=== PATIENT | male | born 1960 | race Caucasian/White ===

== ENCOUNTER 2018-10-15 11:48 | Emergency (ER) | payer BC ==
[~2018-10-15] VITALS: Ht 175.3 cm; Wt 111.2 kg
[2018-10-15 12:03] VITALS: BP 150/91
--- NOTE | 2018-10-15 12:12 | NUR ---
Patient ambulated to bed 7 with family. RN evaluating patient at bedside.
--- NOTE | 2018-10-15 12:25 | NUR ---
C/O THROAT DISCOMFORT X2 WEEKS. PT STATES HE FEELS LIKE THERE IS SOMETHING STUCK IN HIS THROAT. HE STATES THIS MAKES HIM FEEL SOB AND LIKE IT IS HARDER TO BREATHE. O2 SAT ON RA 98%, NO LABORED BREATHING OR ACCESORY MUSCLE USE NOTED. LUNG SOUNDS CTAB. PT DENIES N/V. SIDE RAIL UP X1, PT PLACED IN GOWN.
--- NOTE | 2018-10-15 12:27 | NUR ---
Dr. Holder evaluating patient at bedside.
--- NOTE | 2018-10-15 12:42 | NUR ---
Patient taken to CT scan via wheelchair by tech.
[2018-10-15 14:30] VITALS: BP 142/86
--- NOTE | 2018-10-15 14:30 | NUR ---
Patient discharged with v/s stable. Written and verbal after care instructions given and explained. Patient verbalized understanding. Ambulatory with to car. All questions addressed prior to discharge. Advised to follow up with PMD.
== END 2018-10-15 14:30 | disposition home or self-care (01) ==
LOC: MED 11:48
DX: R07.0 Pain in throat (principal); R06.00 Dyspnea, unspecified
CPT/HCPCS: 70490; 99284